=== PATIENT | male | born 2005 | race Caucasian/White ===

== ENCOUNTER 2024-04-17 11:36 | Emergency (ER) | payer BC ==
--- NOTE | 2024-04-17 11:45 | ERPHSYRPT ---
- History of Present Illness Time Seen by Provider: 04/17/24 11:45 Source: patient Exam Limitations: no limitations Physician History: This is a 18-year-old white male patient of nurse practitioner Valentin who presents the day after injury to the dorsal aspect of his right foot. Patient was on a large circular swing that broke off and landed with his weight onto the dorsal aspect of his right foot last evening. He wanted to see how things looked and felt this morning before coming in to the emergency department for evaluation. Patient has had swelling and tenderness and has been using crutches since the injury because of painful ambulation. Occurred: yesterday Quality: constant, aching Severity of Pain-Max: mild Severity of Pain-Current: mild (To moderate) Lower Extremities Pain: foot: right (Dorsal aspect) Modifying Factors: Improves With: movement Associated Symptoms: other (Hurts to bear weight but can do so) Allergies/Adverse Reactions: No Known Drug Allergies Allergy (Unverified 04/17/24 11:59) Home Medications: No Reportable Medications [No Reported Medications] 04/17/24 [History] Travel Risk - International Travel Have you traveled outside of the country in past 3 weeks: No - Emerging Infectious Disease Are you exhibiting symptoms associated with any current EIDs: No - Review of Systems Constitutional: No Symptoms Eyes: No Symptoms Ears, Nose, & Throat: No Symptoms Respiratory: No Symptoms Cardiac: No Symptoms Abdominal/Gastrointestinal: No Symptoms Genitourinary Symptoms: No Symptoms Musculoskeletal: Injury (Dorsal aspect right foot) Skin: No Symptoms Neurological: No Symptoms Psychological: No Symptoms Endocrine: No Symptoms Hematologic/Lymphatic: No Symptoms Immunological/Allergic: No Symptoms All Other Systems: Reviewed and Negative - Past Medical History Neurological History: No Pertinent History Cardiac History: No Pertinent History Respiratory History: No Pertinent History Endocrine Medical History: No Pertinent History Musculoskeletal History: No Pertinent History Other Medical History: NO PREVIOUS INJURIES WHEN HE PLAYED SPORTS. HE PLAYED FOOTBALL AND BASEBALL. - Nursing Vital Signs Nursing Vital Signs: Initial Vital Signs Temperature 98 F 04/17/24 11:49 Pulse Rate 81 04/17/24 11:49 Respiratory Rate 16 04/17/24 11:49 Blood Pressure 119/68 04/17/24 11:49 O2 Sat by Pulse Oximetry 97 04/17/24 11:49 Pain Scale Pain Intensity 9 - Physical Exam General Appearance: no apparent distress, alert, anxiety, obese Eyes, Ears, Nose, Throat Exam: normal ENT inspection, moist mucous membranes Neck Exam: normal inspection, non-tender, supple, full range of motion Cardiovascular/Respiratory Exam: chest non-tender, no respiratory distress Gastrointestinal/Abdominal Exam: non-tender Back Exam: normal inspection, normal range of motion, No CVA tenderness, No vertebral tenderness Hips Exam: bilateral: non-tender, normal inspection, normal range of motion, no evidence of injury Legs Exam: bilateral leg: non-tender, normal inspection, normal range of motion, no evidence of injury Knees Exam: bilateral knee: non-tender, normal inspection, normal range of motion, no evidence of injury Ankle Exam: bilateral ankle: non-tender, normal inspection, normal range of motion, no evidence of injury Foot Exam: right foot: soft tissue tenderness (Dorsal aspect), swelling (Dorsal aspect), left foot: non-tender, normal inspection, no evidence of injury, bilateral foot: normal range of motion Neuro/Tendon Exam: normal sensation, normal motor functions, normal tendon functions, responds to pain, no evidence tendon injury Mental Status Exam: alert, oriented x 3, cooperative Skin Exam: normal color, warm, dry SpO2 Interpretation: normal O2 Delivery: Room Air - Course Nursing assessment & vital signs reviewed: Yes Ordered Tests: Active Orders 24 hr Category Date Time Status FOOT (MINIMUM 3 VIEWS) Stat Exams 04/17/24 12:00 Taken - Progress Progress: unchanged, pain not gone completely, re-examined Progress Note: 04/17/24 12:22 My medical decision making and the assignment of low complexity to this patient's medical issue today is based on review of the patient's past medical history, review the patient's medication list, review of patient drug allergy list, history present illness and physical findings on examination. The workup in this patient includes x-ray of the patient's right foot. Differential diagnosis includes but is not limited to right foot fracture, right foot dislocation, right foot contusion 04/17/24 13:01 I interpreted the preliminary report on this patient's right foot x-ray. I see soft tissue swelling to the dorsal aspect of the right foot. I do not see the an acute fracture or dislocation. Counseled pt/family regarding: diagnosis, need for follow-up, rad results Medical Desision Making - Independent Historian Additional History obtained from: Mother - Diagnostic Testing Diagnostic test were ordered, analyzed, and reviewed by me: Yes Radiological Interpretation: Interpreted by me - Risk of complications Minimal Risk: Minimal risk of morbidity - Departure Departure Disposition: Home Clinical Impression: Contusion of right foot Condition: Stable Critical Care Time: No Referrals: [facility]O [facility]NER [Primary Care Provider] - Follow up/PCP as directed Additional Instructions: Use crutches and toe-touch ambulation. May resume normal ambulation once the swelling has resolved and there is no further pain. Elevate the right leg above the level of your heart when you are not ambulating. Use an ice bath/pack to the right foot 3 times a day for the next 72 hours. Use Tylenol and ibuprofen for pain control. Follow-up in [facility] orthopedic clinic Friday through Friday 8 AM to 10 AM if your symptoms persist at the same level for 72 hours or more. It is a walk-in clinic and you do not need to have an appointment. Your other options is to follow-up with record keeper, Dr. Potter. Call his office on 04/19/2024 to schedule appointment for follow-up. Final option is contacting your primary care provider on 04/19/2024 to schedule an appointment for follow-up
[2024-04-17 11:59] VITALS: TEMP 98
[2024-04-17 13:02] VITALS: BP 126/57; PULSE 86; RESP 17; O2SAT 97
--- NOTE | 2024-04-17 20:49 | XRAY ---
Indication: Pain following trauma. Comparison: None 3 nonweightbearing views right foot obtained. No bony, articular, or soft tissue abnormalities.
== END 2024-04-17 13:20 | disposition home or self-care (01) ==
LOC: ED 11:36
DX: S90.31XA Contusion of right foot, initial encounter (principal); W20.8XXA Other cause of strike by thrown, projected or falling object, initial encounter
CPT/HCPCS: 73630; 99282